=== PATIENT | female | born 1980 | race Caucasian/White ===

== ENCOUNTER 2017-10-19 07:56 | Emergency (ER) | payer MEDICAID, OTHER ==
[~2017-10-19] VITALS: Ht 160 cm; Wt 63.3 kg
[~2017-10-19 07:56] MED LIST: Z.0.NO CURRENT MEDS
[2017-10-19 07:58] VITALS: BP 125/70; PULSE 86; RESP 16; TEMP 97.7; O2SAT 100
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
--- NOTE | 2017-10-19 08:58 | RADRPT ---
EXAM DATE/TIME: 10/19/2017 08:36 [facility] COMPARISON: No previous studies available for comparison. INDICATIONS : Right ear pain. Right sided paresthesias. Evaluate for dural hematoma. RADIATION DOSE: 64.23 CTDIvol (mGy) MEDICAL HISTORY : None SURGICAL HISTORY : Appendectomy. Tubal ligation. ENCOUNTER: Initial ACUITY: 1 day PAIN SCALE: 10/10 LOCATION: Right cranial TECHNIQUE: Multiple contiguous axial images were obtained of the head. Using automated exposure control and adj ustment of the mA and/or kV according to patient size, radiation dose was kept as low as reasonably a chievable to obtain optimal diagnostic quality images. DICOM format image data is available electro nically for review and comparison. FINDINGS: CEREBRUM: The ventricles are normal for age. No evidence of midline shift, mass lesion, hemorrhage or acute in farction. No extra-axial fluid collections are seen. POSTERIOR FOSSA: The cerebellum and brainstem are intact. The 4th ventricle is midline. The cerebellopontine angle i s unremarkable. EXTRACRANIAL: The visualized portion of the orbits is intact. SKULL: The calvaria is intact. No evidence of skull fracture. CONCLUSION: Negative exam. Yusuf Rodgers MD on October 19, 2017 at 8:54 Board Certified Radiologist. This report was verified electronically.
--- NOTE | 2017-10-19 09:05 | RADRPT ---
EXAM DATE/TIME: 10/19/2017 08:36 [facility] COMPARISON: No previous studies available for comparison. INDICATIONS : Right ear pain. Myelopathy. Right sided paresthesias. RADIATION DOSE: 24.55 CTDIvol (mGy) MEDICAL HISTORY : None SURGICAL HISTORY : Appendectomy. Tubal ligation. ENCOUNTER: Initial ACUITY: 1 day PAIN SCALE: 10/10 LOCATION: Right neck TECHNIQUE: Volumetric scanning of the cervical spine was performed. Multiplanar reconstructions in the sagittal, coronal and oblique axial planes were performed. Using automated exposure control and adjustment o f the mA and/or kV according to patient size, radiation dose was kept as low as reasonably achievable to obtain optimal diagnostic quality images. DICOM format image data is available electronically f or review and comparison. FINDINGS: Sagittal and coronal reconstructions show reversal of the normal lordotic curvature which may be posi tional. Minimal grade 1 anterolisthesis of C4 on 5. Vertebral body heights are maintained without fra cture. There is some early loss of disc space at C5-6. Disc heights are otherwise maintained. Spinal canal is widely patent. Also noted are prominent abnormal tissues in the nasopharynx. C2-C3: The bony spinal canal is normal in size. No evidence of disc bulge or herniation. The neural forami na are bilaterally patent. C3-C4: The bony spinal canal is normal in size. No evidence of disc bulge or herniation. The neural forami na are bilaterally patent. C4-C5: The bony spinal canal is normal in size. No evidence of disc bulge or herniation. The neural forami na are bilaterally patent. C5-C6: The bony spinal canal is normal in size. No evidence of disc bulge or herniation. The neural forami na are bilaterally patent. C6-C7: The bony spinal canal is normal in size. No evidence of disc bulge or herniation. The neural forami na are bilaterally patent. C7-T1: The bony spinal canal is normal in size. No evidence of disc bulge or herniation. The neural forami na are bilaterally patent. CONCLUSION: 1. Reversal of the normal lordotic curvature which may be positional. Minimal grade 1 anterolisthesis C4 on 5. 2. Degenerative disc disease at C5-6 with some loss of disc height. No fracture. 3. Prominence of the adenoidal tissues in the nasopharynx. Yusuf Rodgers MD on October 19, 2017 at 8:56 Board Certified Radiologist. This report was verified electronically.
[2017-10-19] MEDS ORDERED: CEPH-460 PO (09:19)
== END 2017-10-19 09:27 | disposition home or self-care (01) ==
LOC: PHEFT 07:56
DX: H66.001 Acute suppurative otitis media without spontaneous rupture of ear drum, right ear (principal); J02.9 Acute pharyngitis, unspecified; F17.210 Nicotine dependence, cigarettes, uncomplicated
CPT/HCPCS: 70450; 72125; 99285

== ENCOUNTER 2017-11-29 12:02 | Emergency (ER) | payer MEDICAID ==
[~2017-11-29] VITALS: Ht 162.6 cm; Wt 67.2 kg
[~2017-11-29 12:02] MED LIST changes: +CEPH-460 PO; -Z.0.NO CURRENT MEDS
[2017-11-29 12:04] VITALS: BP 108/66; PULSE 80; RESP 18; TEMP 98.1; O2SAT 100
[2017-11-29] MEDS ORDERED: ONDANSETRON HCL 4 MG/5 ML UDC PO ONE (13:30)
[2017-11-29] MEDS ORDERED: ACETAMINOPHEN 650 MG/20.3 ML UDC PO ONE (13:30)
[2017-11-29] MEDS ORDERED: ZOFR4TAB3 SL (13:33)
[2017-11-29] MEDS ORDERED: CLIN300C5 PO (13:33)
[2017-11-29] MEDS ORDERED: MAGICADU2 SWISH-SWAL (13:33)
--- NOTE | 2017-11-29 13:40 | PD ---
HPI Chief Complaint: ENT Complaint Time Seen by Provider: 13:16 Travel History International Travel<30 days: No Contact w/Intl Traveler<30days: No Traveled to known affect area: No History of Present Illness HPI 37-year-old female presents to the ED for evaluation of 10 out of 10 throat pain. Onset upon waking this morning. Worsened by swallowing. No alleviating factors reported. She also complains of tender cervical lymphadenopathy, bilateral ear congestion, nausea and chills. She denies sinus congestion, runny nose, headache, cough. 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 No treatment attempted at home. PFSH Past Medical History Diminished Hearing: No Endocrine: Yes (HYPOGLYCEMIA) ?: Not LMP: LAST WEEK : 4 Para: 4 Ovarian Cysts: Yes (RUPTURED ) Tubal Ligation: Yes Past Surgical History Appendectomy: Yes Social History Alcohol Use: No Tobacco Use: Yes (2 CIGARETTES/DAY) Substance Use: No Allergies-Medications (Allergen,Severity, Reaction): Coded Allergies: penicillin G (Unverified Allergy, Intermediate, NOSE BLEEDS, 11/29/17) clarithromycin (Unverified Allergy, Mild, "NOSE BLEEDS", 11/29/17) sulfamethoxazole (Unverified Allergy, Mild, "NOSE BLEEDS", 11/29/17) trimethoprim (Unverified Allergy, Mild, "NOSE BLEEDS", 11/29/17) Reported Meds & Prescriptions Reported Meds & Active Scripts Active Zofran Odt (Ondansetron Odt) 4 Mg Tab 4 Mg SL Q8HR PRN Clindamycin (Clindamycin HCl) 300 Mg Cap 300 Mg PO TID 10 Days Magic Mouthwash Adult Liq (Multi-Ingredient Mouthwash/Gargle) 120 Ml Susp 5 Ml SWISH-SWAL ACHS Each 5mL contains: Nystatin 200,000units, Diphenhydramine 4.25mg, Viscous Lidocaine 10mg, Wheatley syrup 0.8 mL Review of Systems Except as stated in HPI: all other systems reviewed are Neg Physical Exam Narrative GENERAL: Well-nourished, well-developed ill-appearing white female in no acute distress. SKIN: Warm and dry. HEAD: Normocephalic. Atraumatic. EYES: No scleral icterus. No injection or drainage. PERRLA. EOMI. ENT: Pearly hawkins tympanic membranes bilaterally. Bilateral serous effusions. Nasal mucosa is moist. Posterior oropharynx beefy red with 2+ tonsils and jose exudates. Uvula midline. Airway patent.. NECK: Supple, trachea midline. No JVD. Positive tender anterior cervical lymphadenopathy. CARDIOVASCULAR: Regular rate and rhythm without murmurs, gallops, or rubs. RESPIRATORY: Breath sounds clear and equal bilaterally. No accessory muscle use. GASTROINTESTINAL: Abdomen soft, non-tender, nondistended. + Bowel sounds MUSCULOSKELETAL: No cyanosis, or edema. BACK: Nontender without obvious deformity. No CVA tenderness. Data Data Last Documented VS Vital Signs Date Time Temp Pulse Resp B/P (MAP) Pulse Ox O2 Delivery O2 Flow Rate FiO2 11/29/17 12:04 98.1 80 18 108/66 (80) 100 Orders Orders Group A Rapid Strep Screen (11/29/17 13:16) Ondansetron Liq (Zofran Liq) (11/29/17 13:30) Acetaminophen 650 Mg/20 Ml Liq (Tylenol (11/29/17 13:30) MDM Medical Decision Making Medical Screen Exam Complete: Yes Emergency Medical Condition: Yes Differential Diagnosis Pharyngitis versus strep pharyngitis versus otitis media versus other Narrative Course 37-year-old female presents to the ED for evaluation of 10 out of 10 throat pain. Onset upon waking this morning. She also complains of tender cervical lymphadenopathy, bilateral ear congestion, nausea and chills. She denies sinus congestion, runny nose, headache, cough. Patient afebrile on presentation. Physical exam reveals beefy red posterior oropharynx, 2+ tonsils, Jose pockets of exudate and tender anterior cervical lymphadenopathy. Exam otherwise unremarkable. Rapid strep swab obtained and pending. However given the patient 's symptoms we'll treat empirically for strep pharyngitis. This patient's prescribed clindamycin 300 mg 3 times a day, short course of Zofran and Magic mouthwash. She is instructed to take every dose of medications as well as, RETURN FOR WORSENING SYMPTOMS, OTHERWISE FOLLOW-UP WITH ENT. SHE INDICATED UNDERSTANDING OF THE INSTRUCTIONS AND IS AGREEABLE TO the CARE PLAN. SHE IS stable and DISCHARGED HOME. Diagnosis Primary Impression: Pharyngitis Qualified Codes: J02.9 - Acute pharyngitis, unspecified Referrals: Ear / Nose / Throat Specialist Patient Instructions: General Instructions, Strep Throat (ED) Additional Instructions: Rest, hydrate. Push fluids such as sports drinks, Pedialyte, popsicles, clear broth. Begin clindamycin today and take as prescribed until every dose is gone. Magic mouthwash gargle and spit a few times a day for throat pain. Zofran under the tongue every 8 hours as needed for continued nausea. Alternating Motrin and Tylenol every 4-6 hours as needed for continued fever and throat pain. Increase handwashing frequently to avoid the spread of the virus to other family members and the community. Disinfect commonly touched surfaces such as light switches, microwaves, remote controls. Replace toothbrush at the end of this illness. Follow-up with the primary care provider this week. Return to the ED for WORSENING SYMPTOMS or any urgent or emergent medical condition. Med/Other Pt SpecificInfo: Prescription(s) given Scripts Ondansetron Odt (Zofran Odt) 4 Mg Tab 4 MG SL Q8HR Y for Nausea/Vomiting, #5 TAB 0 Refills Prov: Manuel Cooper MD 11/29/17 Clindamycin (Clindamycin) 300 Mg Cap 300 MG PO TID for Infection for 10 Days, CAP 0 Refills Prov: Manuel Cooper MD 11/29/17 Efurmhzh-Fappub[place]wnubpys-Iknacxetb Liq (Magic Mouthwash Adult Liq) 120 Ml Susp 5 ML SWISH-SWAL ACHS for Sore Throat, #120 ML 0 Refills Each 5mL contains: Nystatin 200,000units, Diphenhydramine 4.25mg, Viscous Lidocaine 10mg, Wheatley syrup 0.8 mL Prov: Manuel Cooper MD 11/29/17 Disposition: 01 DISCHARGE HOME Condition: Stable Jeaneth Dan Nov 29, 2017 13:40
[2017-11-29] MEDS ORDERED: methylPREDNISolone SOD SUCC 40 MG/1 ML VIAL IM SCH (14:00)
== END 2017-11-29 14:19 | disposition home or self-care (01) ==
LOC: PHEFT 12:02
DX: J02.9 Acute pharyngitis, unspecified (principal); F17.200 Nicotine dependence, unspecified, uncomplicated; Z88.2 Allergy status to sulfonamides; Z88.0 Allergy status to penicillin; Z88.1 Allergy status to other antibiotic agents
CPT/HCPCS: 87081; 87880; 96372; 99284; J2920